=== PATIENT | female | born 1950 | race Asian ===

== ENCOUNTER 2017-08-18 18:43 | Emergency (ER) | payer MEDICARE ==
[2017-08-18] MEDS ORDERED: HYDROcod/ACETAM 5/325 MG TABLET PO STA (18:59)
--- NOTE | 2017-08-18 19:01 | ED Physician Documentation ---
History of Present Illness - Stated complaint Stated Complaint: GLF - Chief complaint Chief Complaint: General - History obtained from History obtained from: Patient - History of Present Illness Timing: Today (She tripped getting out of her car and fell forward hitting both knees and her right wrist on concrete c/o mostly right wrist knee pain, less so the knees and the elbow. No head injury except she scraped her lip. Tetanus is up-to-date.) Review of Systems Constitutional: reports: Reviewed and negative Cardiac: reports: Reviewed and negative Respiratory: reports: Reviewed and negative PD PAST MEDICAL HISTORY - Present Medications Home Medications: Ambulatory Orders Medication Instructions Recorded Confirmed HYDROcod/ACETAM 5/325 [Star 5/325] 1 - 2 ea PO Q6H PRN #15 tablet 08/18/17 - Allergies Allergies/Adverse Reactions: Allergies Allergy/AdvReac Type Severity Reaction Status Date / Time aspirin Allergy Unknown Verified 08/18/17 18:52 PD ED PE NORMAL - Vitals Vital signs reviewed: Yes - General General: Alert and oriented X 3, No acute distress - HEENT HEENT: PERRL, EOMI, Other (There is a little contusion on the right upper lip but no facial bony tenderness or dental injury.) - Neck Neck: Supple, no meningeal sign, No bony TTP - Extremities Extremities: Other (Quite tender with slight deformity of the right wrist and no range of motion but normal neurovascular status in the hand. She has mild tenderness over the elbow as well. Both knees have scrapes and ecchymosis on him and mild tenderness over both patella, right greater than left with intact extensor tendon function.) - Neuro Neuro: Alert and oriented X 3, Normal speech Results - Vitals Vitals: Vital Signs - 24 hr 08/18/17 18:46 Temperature 37 C Heart Rate 90 Respiratory 20 Rate Blood Pressure 168/92 H O2 Saturation 98 Oxygen O2 Source Room air - Rads (name of study) Xrays B KKnees, R wrist and R elbow Radiology: EMP read contemporaneously (Distal radius fracture there is an intra- articular with ulnar styloid fracture, no other fractures.) Procedures - Splint (location) R wrist Splint applied by: Tech Type of splint: Fiberglass, Short arm, Volar cock up Other: Patient tolerated well, No complications, Neurovascular intact Departure - Departure Disposition: 01 Home, Self Care Clinical Impression: Right wrist fracture Qualifiers: Encounter type: initial encounter Fracture type: closed Qualified Code(s): S62.101A - Fracture of unspecified carpal bone, right wrist, initial encounter for closed fracture Contusion of right knee Qualifiers: Encounter type: initial encounter Qualified Code(s): S80.01XA - Contusion of right knee, initial encounter Contusion of left knee Qualifiers: Encounter type: initial encounter Qualified Code(s): S80.02XA - Contusion of left knee, initial encounter Sprain of right elbow Qualifiers: Encounter type: initial encounter Qualified Code(s): S53.401A - Unspecified sprain of right elbow, initial encounter Condition: Good Record reviewed to determine appropriate education?: Yes Instructions: ED Fx Colles Wrist No Redu Requ Follow-Up: [facility] [Provider Group] - Within 1 week Prescriptions: HYDROcod/ACETAM 5/325 [Star 5/325] 1 - 2 ea PO Q6H PRN #15 tablet PRN Reason: Pain Comments: Your blood pressure was elevated today on check into the emergency department. This does not mean that you have hypertension, it is a common phenomenon to come to the emergency department and have elevated blood pressure. I recommend that you see your primary care physician within the week to have it rechecked when you are feeling better. Do not drink or drive while taking narcotic pain medication. Note that many narcotic pain relievers also contain Tylenol/acetaminophen. Please ensure that your total dose of acetaminophen from all sources does not exceed 3 g (3000 mg) per day. You may get constipated while on this medication. Take a stool softener such as Colace twice a day while you are on it. Also add an genv-ics-fdeancf laxative such as senna or MiraLAX on any day that you do not have a bowel movement. If you received a narcotic pain medication or sedative while in the emergency department, do not drive for the next 24 hours.
[2017-08-18 19:07] VITALS: BP 168/92
--- NOTE | 2017-08-18 19:46 | XRAY Preliminary Report ---
Exam: XR KNEE 4 VIEW BILAT IMPRESSION: No acute radiographic abnormalities. [facility] SITE ID: [id number]
--- NOTE | 2017-08-18 19:46 | XRAY Report ---
EXAMS: 1. Right Knee Radiography 2. Left Knee Radiography EXAM DATE:08/18/2017 07:38 PM. CLINICAL HISTORY:Fall, knee, wrist, elbow inj. COMPARISON: None. TECHNIQUE: 3 views each. FINDINGS: Right Knee: Bones: No acute fractures or suspicious bone lesions. Joints: No effusion. No subluxations. Small lateral compartment osteophytes. Soft Tissues: Unremarkable. Left Knee: Bones: No acute fractures or suspicious bone lesions. Joints: No effusion. No subluxations. Small lateral compartment osteophytes. Soft Tissues: Unremarkable. IMPRESSION: No acute radiographic abnormalities. [facility] Referring Provider Line: [phone] SITE ID: [id number]
--- NOTE | 2017-08-18 19:46 | XRAY Preliminary Report ---
Exam: XR WRIST 4 VIEW RT IMPRESSION: Distal radial intra-articular fracture. Ulnar styloid fracture. [facility] SITE ID: [id number]
--- NOTE | 2017-08-18 19:46 | XRAY Report ---
EXAM: RIGHT WRIST RADIOGRAPHY EXAM DATE: 08/18/2017 07:38 PM. CLINICAL HISTORY: Fall, knee, wrist, elbow inj. COMPARISON: None. TECHNIQUE: 4 views. FINDINGS: Bones: Nondisplaced transverse fracture of the distal radial metaphysis extending to the articular redmond rface. Nondisplaced fracture of the ulnar styloid. Joints: No subluxations. 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 Soft Tissues: Unremarkable. IMPRESSION: Distal radial intra-articular fracture. Ulnar styloid fracture. [facility] Referring Provider Line: [phone] SITE ID: [id number]
--- NOTE | 2017-08-18 19:46 | XRAY Preliminary Report ---
Exam: XR ELBOW 3 VIEW RT IMPRESSION: No acute radiographic abnormalities. [facility] SITE ID: [id number]
--- NOTE | 2017-08-18 19:47 | XRAY Report ---
EXAM: RIGHT ELBOW RADIOGRAPHY EXAM DATE: 08/18/2017 07:37 PM. CLINICAL HISTORY: Fall, knee, wrist, elbow inj. COMPARISON: None. TECHNIQUE: 3 views. FINDINGS: Bones: No acute fractures or suspicious bone lesions. Joints: No subluxations. Soft Tissues: Unremarkable. IMPRESSION: No acute radiographic abnormalities. [facility] Referring Provider Line: [phone] SITE ID: [id number]
== END 2017-08-18 20:19 | disposition home or self-care (01) ==
LOC: ED 18:43
DX: S52.571A Other intraarticular fracture of lower end of right radius, initial encounter for closed fracture (principal); S52.611A Displaced fracture of right ulna styloid process, initial encounter for closed fracture; S53.401A Unspecified sprain of right elbow, initial encounter; S80.02XA Contusion of left knee, initial encounter; S80.01XA Contusion of right knee, initial encounter; V48.4XXA Person boarding or alighting a car injured in noncollision transport accident, initial encounter; R03.0 Elevated blood-pressure reading, without diagnosis of hypertension
CPT/HCPCS: 29125; 73080; 73110; 73564; 99281; 99283; A9270

== ENCOUNTER 2017-09-11 07:55 | Day surgery (SDC) | payer MEDICARE ==
[~2017-09-11 07:55] MED LIST: ceFAZolin 1 GM VIAL ONE
[2017-09-11] MEDS ORDERED: LACTATED RINGERS 1,000 ML IV ONE (08:20)
[2017-09-11] MEDS ORDERED: BUPIVACAINE 0.25%-EPI 1:200000 PF 30 ML VIAL ONE (08:57)
[2017-09-11] MEDS ORDERED: PROPOFOL 200 MG/20 ML VIAL IVP ONE (09:30)
[2017-09-11] MEDS ORDERED: LIDOCAINE-MPF 2% 5 ML VIAL IM ONE (09:30)
[2017-09-11] MEDS ORDERED: fentaNYL 100 MCG/2 ML VIAL IVP ONE (09:30)
[2017-09-11] MEDS ORDERED: ONDANSETRON 4 MG/2 ML VIAL IVP ONE (09:30)
[2017-09-11] MEDS ORDERED: MIDAZOLAM 2 MG/2 ML VIAL IVP ONE (09:30)
[2017-09-11] MEDS ORDERED: DEXAMETHASONE 4 MG/ML VIAL IVP ONE (09:30)
[2017-09-11] MEDS ORDERED: BUPIVACAINE 0.25%-EPI 1:200000 PF 10 ML VIAL SUBQ ONE ×2 (09:33)
[2017-09-11] MEDS ORDERED: oxyCODONE 5 MG TABLET ONE (10:55)
--- NOTE | 2017-09-11 11:45 | OPERATIVE REPORT ---
DATE OF SERVICE: 09/11/2017 Physician: Margarita Moyer MD PREOPERATIVE DIAGNOSIS: Right distal radius intraarticular closed radial fracture with dorsal angulation. POSTOPERATIVE DIAGNOSIS: Right distal radius intraarticular closed radial fracture with dorsal angulation. PROCEDURE PERFORMED: Open reduction, internal fixation with percutaneous pinning of right distal radius. SURGEON: Maragrita Moyer MD ANESTHESIA: General by Diego Telles. INDICATIONS FOR SURGERY: Patient is a 66-year-old female over 3 weeks status post a closed right radial fracture with progressive increasing dorsal angulation overtime in spite of reduction and immobilization. Recommendation now is the patient undergo attempted closed reduction versus open reduction pinning versus plate fixation. FINDINGS AT SURGERY: At surgery patient, under anesthetic, underwent a manipulation, and reduction was unable to be gained. This necessitated open reduction for correction of angulation. DESCRIPTION OF OPERATIVE PROCEDURE: Patient was taken to the operating room, given a general anesthetic in a supine position on the OR table. Surgical timeout was accomplished. The limb was sterilely prepped and draped in standard fashion. It was elected to create a dorsal incision entry point and expose the dorsal fracture in order to lever the fracture into a volar or neutral rotation from its deformity and through with exposure of the extensor tendons and protection of the EPL tendon, fracture line was identified by C-arm imaging and a [place] elevator wedged into it and after this inserting the instruments to lever this fracture line into correction as viewed by lateral x-rays of the wrist. Ultimately, a neutral alignment could be gained and was acceptable and once this alignment was held percutaneous pins 0.062 size were driven transradial styloid in a crisscross fashion, gaining fixation and holding this reduction stable as the wrist was moved through range of motion. This was acceptable in 2 planes. The dorsal wound was irrigated and closed with interrupted Vicryl and Prolene and skin. The pins were bent and cut outside the skin with Jurgan balls placed on them, after which the patient was casted in a below elbow fiberglass cast, which was well padded and then univalved for swelling control. The patient was taken to recovery room in stable condition. ESTIMATED BLOOD LOSS: Minimal. COMPLICATIONS: None. SPONGE AND NEEDLE COUNTS: Correct. TD: 09/11/2017 10:36 [facility]
[2017-09-11 11:57] VITALS: BP 174/98
== END 2017-09-11 07:56 | disposition home or self-care (01) ==
LOC: SDS 07:55
PROVIDERS: ATTEND Orthopaedic Surgery
PROC: 0PSH04Z Reposition Right Radius with Internal Fixation Device, Open Approach (ICD-10-PCS; principal; 2017-09-11 08:45)
DX: S52.571A Other intraarticular fracture of lower end of right radius, initial encounter for closed fracture (principal); B18.2 Chronic viral hepatitis C
CPT/HCPCS: 25609; A9270; C1713; J7120

== ENCOUNTER 2019-09-13 17:56 | Emergency (ER) | payer MEDICARE ==
--- NOTE | 2019-09-13 18:20 | ED Physician Documentation ---
PD HPI LOWER EXT INJURY - Stated complaint Stated Complaint: RT LEG SWELLING/DISCOLORATION - Chief complaint Chief Complaint: Ext Problem - History obtained from History obtained from: Patient - History of Present Illness PD HPI LOW EXT INJURY LOCATION: Right (Over the last week she has had relatively painless swelling of the right leg and calf. She went to her chiropractor today who told her she should come here if she did not want to of a blood clot. She denies chest pain or trouble breathing. No history of DVT or PE.) Review of Systems Constitutional: denies: Fever, Chills Nose: reports: Reviewed and negative Cardiac: reports: Reviewed and negative Respiratory: reports: Reviewed and negative PD PAST MEDICAL HISTORY - Past Medical History Cardiovascular: None Respiratory: None Endocrine/Autoimmune: None GI: Hiatal hernia, Hepatitis : None HEENT: Chronic vision loss Psych: Anxiety Musculoskeletal: None Derm: None - Past Surgical History Past Surgical History: No Ortho: Carpal Tunnel surgery, Other /LEGAL ADMINISTRATIVE SECRETARY: section - Allergies Allergies/Adverse Reactions: Allergies Allergy/AdvReac Type Severity Reaction Status Date / Time aspirin Allergy Unknown Verified 09/13/19 18:10 acetaminophen [From Tylenol] AdvReac Unknown Verified 09/13/19 18:10 tape AdvReac Unknown Uncoded 09/13/19 18:10 - Social History Does the pt smoke?: No Smoking Status: Never smoker Does the pt drink ETOH?: No Does the pt have substance abuse?: No - Immunizations Immunizations are current?: Yes - POLST Patient has POLST: No PD ED PE NORMAL - Vitals Vital signs reviewed: Yes - General General: Alert and oriented X 3, No acute distress - HEENT HEENT: PERRL, EOMI - Neck Neck: Supple, no meningeal sign, No bony TTP - Cardiac Cardiac: RRR, No murmur - Respiratory Respiratory: No respiratory distress, Clear bilaterally - Abdomen Abdomen: Soft, Non tender - Back Back: No CVA TTP, No spinal TTP - Derm Derm: Normal color, Warm and dry - Extremities Extremities: Other (She does have edema without tenderness of the right leg from just above the knee down to the foot. She has bounding pedal pulses. Negative Homans sign.) - Neuro Neuro: Alert and oriented X 3, Normal speech Results - Vitals Vitals: Vital Signs - 24 hr 06/09/13/19 09/13/19 18:06 18:38 20:09 Heart Rate 93 93 90 Respiratory 18 18 16 Rate Blood Pressure 129/94 H 129/94 H 178/82 H O2 Saturation 97 97 99 Oxygen O2 Source Room air - Labs Labs: Laboratory Tests 09/13/19 09/13/19 09/13/19 18:34 18:34 18:34 WBC 5.5 RBC 3.61 L Hgb 12.6 Hct 37.1 MCV 102.8 H MCH 34.9 H MCHC 34.0 RDW 14.6 Plt Count 82 L MPV 12.5 H Neut # (Auto) 2.1 Lymph # (Auto) 2.4 [place] # (Auto) 0.7 Eos # (Auto) 0.2 Baso # (Auto) 0.1 Absolute Nucleated RBC 0.00 Nucleated RBC % 0.0 PT 15.3 H INR 1.4 H APTT 34.3 H Sodium 133 L Potassium 3.6 Chloride 101 Carbon Dioxide 26 Anion Gap 6.0 BUN 19 Creatinine 0.6 Estimated GFR (MDRD) 99 Glucose 101 H Calcium 9.7 - Rads (name of study) RLE sono Radiology: EMP read contemporaneously (Neg for DVT) PD MEDICAL DECISION MAKING - ED course ED course: The patient was counseled as to the diagnosis and need for follow-up. I coun seled the patient with regard to signs and symptoms that would necessitate an urgent reevaluation in the emergency department. They understand they are welcome to return at any time if worse or if not improving as expected. This document was made in part using voice recognition software. While efforts are made to proofread this documents, sound alike and grammatical errors may occur. Departure - Departure Disposition: 01 Home, Self Care Clinical Impression: Pedal edema Condition: Good Record reviewed to determine appropriate education?: Yes Instructions: ED Leg Swelling Unilateral Comments: Thanks for your patience today, your ultrasound of your legs shows no blood clots. Follow-up with your doctor in 1 week if not better, return for new or worsening symptoms. Discharge Date/Time: 09/13/19 20:45
[2019-09-13 18:46] LABS: BASOPHILS # (AUTO) 0.1 10^3/uL (0.0-0.1); BASOPHILS % (AUTO) 1.1 %; EOSINOPHILS # (AUTO) 0.2 10^3/uL (0.0-0.7); EOSINOPHILS % (AUTO) 3.3 %; HGB - HEMOGLOBIN 12.6 g/dL (12.0-16.0); LYMPHOCYTES # (AUTO) 2.4 10^3/uL (1.5-3.5); LYMPHOCYTES % (AUTO) 43.9 %; MEAN CORPUSCULAR HEMOGLOBIN 34.9 pg (27.0-31.0); MEAN CORPUSCULAR VOLUME 102.8 fL (81.0-99.0); MEAN PLATELET VOLUME 12.5 fL (7.9-10.8); MONOCYTES # (AUTO) 0.7 10^3/uL (0.0-1.0); MONOCYTES % (AUTO) 12.7 %; NEUTROPHILS # (AUTO) 2.1 10^3/uL (1.5-6.6); NEUTROPHILS % (AUTO) 38.8 %; PLT - PLATELET COUNT 82 10^3/uL (130-450); RED BLOOD COUNT 3.61 10^6/uL (4.20-5.40); RED CELL DISTRIBUTION WIDTH 14.6 % (12.0-15.0); WHITE BLOOD COUNT 5.5 x10^3/uL (4.8-10.8)
[2019-09-13 18:55] LABS: INR 1.4 (0.8-1.2); PT - PROTHROMBIN TIME 15.3 secs (9.9-12.6)
[2019-09-13 19:02] LABS: PARTIAL THROMBOPLASTIN TIME 34.3 secs (24.9-33.3)
[2019-09-13 19:03] LABS: CALCIUM 9.7 mg/dL (8.5-10.3); CREATININE 0.6 mg/dL (0.4-1.0)
[2019-09-13 20:20] VITALS: BP 178/82
--- NOTE | 2019-09-13 21:04 | Ultrasound Report ---
PROCEDURE: Duplex Ext Veins Right INDICATIONS: RLE swelling TECHNIQUE: Real-time imaging, as well as color and pulse Doppler interrogation, were performed of the lower extr emity deep veins from the inguinal ligament to the popliteal fossa. COMPARISON: None. FINDINGS: The deep veins are normally compressible, and free of intraluminal thrombus. Color and pu lse Doppler demonstrate normal phasic intraluminal flow. There is normal augmentation response to di stal compression maneuver. IMPRESSION: No DVT in the right lower extremity. Reviewed by: Jt Heart MD on 09/13/2019 9:02 PM PDT Approved by: Jt Heart MD on 09/13/2019 9:02 PM PDT Station ID: [id number]
== END 2019-09-13 20:45 | disposition home or self-care (01) ==
LOC: ED 17:56
DX: R60.0 Localized edema (principal)
CPT/HCPCS: 36415; 80048; 85025; 85610; 85730; 99283; 99284

== ENCOUNTER 2020-07-03 08:00 | Outpatient (CLI) | payer MEDICARE ==
[2020-07-03 18:04] LABS: BASOPHILS # (AUTO) 0.1 10^3/uL (0.0-0.1); BASOPHILS % (AUTO) 1.5 %; EOSINOPHILS # (AUTO) 0.1 10^3/uL (0.0-0.7); EOSINOPHILS % (AUTO) 3.3 %; HGB - HEMOGLOBIN 13.1 g/dL (12.0-16.0); LYMPHOCYTES # (AUTO) 1.2 10^3/uL (1.5-3.5); LYMPHOCYTES % (AUTO) 36.4 %; MEAN CORPUSCULAR HEMOGLOBIN 36.1 pg (27.0-31.0); MEAN CORPUSCULAR HGB CONC 34.5 g/dL (32.0-36.0); MEAN CORPUSCULAR VOLUME 104.7 fL (81.0-99.0); MEAN PLATELET VOLUME 13.7 fL (7.9-10.8); MONOCYTES # (AUTO) 0.4 10^3/uL (0.0-1.0); MONOCYTES % (AUTO) 11.8 %; NEUTROPHILS # (AUTO) 1.5 10^3/uL (1.5-6.6); NEUTROPHILS % (AUTO) 46.7 %; PLT - PLATELET COUNT 76 10^3/uL (130-450); RED BLOOD COUNT 3.63 10^6/uL (4.20-5.40); RED CELL DISTRIBUTION WIDTH 14.8 % (12.0-15.0); WHITE BLOOD COUNT 3.3 x10^3/uL (4.8-10.8)
[2020-07-03 18:18] LABS: INR 1.3 (0.8-1.2); PT - PROTHROMBIN TIME 14.6 secs (9.9-12.6)
[2020-07-03 18:19] LABS: ALBUMIN 3.8 g/dL (3.2-5.5); ALBUMIN/GLOBULIN RATIO 0.8 (1.0-2.2); BILIRUBIN,TOTAL 1.4 mg/dL (0.2-1.0); CALCIUM 9.9 mg/dL (8.5-10.3); CREATININE 0.4 mg/dL (0.4-1.0); MAGNESIUM 1.9 mg/dL (1.7-2.8); POTASSIUM 4.4 mmol/L (3.5-5.0); TOTAL PROTEIN 8.3 g/dL (6.7-8.2)
[2020-07-04 12:48] LABS: HEPATITIS B CORE AB TOTAL REACTIVE (NON-REACTIVE); HEPATITIS B SURFACE ANTIGEN NON-REACTIVE (NON-REACTIVE); HEPATITIS C ANTIBODY REACTIVE (NON-REACTIVE)
== END 2020-07-03 23:59 | disposition home or self-care (01) ==
LOC: LAB.WCP 08:00
PROVIDERS: ATTEND Family Medicine
DX: B18.2 Chronic viral hepatitis C (principal)
CPT/HCPCS: 36415; 80053; 83735; 85025; 85610; 86317; 86704; 86803; 87340; 87522

== ENCOUNTER 2020-07-24 08:57 | Outpatient (CLI) | payer MEDICARE ==
--- NOTE | 2020-07-24 15:07 | Ultrasound Report ---
PROCEDURE: Abdomen Complete INDICATIONS: HEP C, CHRONIC TECHNIQUE: Real-time scanning was performed of the abdominal and retroperitoneal organs, with image documentatio n. COMPARISON: None. FINDINGS: Liver: Liver is normal in size and homogeneous in echotexture, hyperechoic and coarse in echotexture consistent with fatty infiltration. Gallbladder: The gallbladder appears normal, free of calculus and gallbladder wall thickening is not present. There is a 6 x 7 mm nonshadowing focus within the gallbladder lumen likely a small sludge ba ll. Biliary ducts: Intrahepatic bile ducts are non-dilated. Extrahepatic bile duct caliber measures 4.7 mm. Normal is 6-7 mm or less in diameter, or 10 mm or less post-cholecystectomy. Pancreas: Visualized portions of the pancreas are sonographically normal. Spleen: Spleen is normal in size and homogeneous in echotexture. Kidneys: Kidneys are normal in size and echotexture. Right kidney measures 11.8 cm long; left kidne y measures 12.3 cm long. No hydronephrosis or nephrolithiasis. No solid masses. There is a simple appearing 4.2 cm maximal dimension right renal cortical cyst and 2 additional smaller cysts measuring 1.8 cm and 0.6 cm respectively on the right. A left renal cortical cyst is present, also simple in a ppearance and measuring up to 1.7 cm. Aorta: Visualized aorta is normal in caliber at less than 3 cm. Iliacs: Proximal common iliac arteries are normal in caliber at less than 2.5 cm. IVC: Intrahepatic inferior vena cava is patent. Miscellaneous: No free abdominal fluid. IMPRESSION: Hyperechoic coarse echotexture of the liver, consistent with fatty infiltration. No definite hepatic capsular nodularity, or splenomegaly, is seen. No ascites or varices are found. No focal liver mass l esion is seen. Incidental note is made of a small 6 x 7 mm mildly echogenic focus within the gallbladder lumen most likely a small sludge ball given absence of shadowing posterior to this structure. This also could re present a relatively hypoechoic gallbladder polyp. Reviewed by: Yossi Johnson MD on 07/24/2020 3:06 PM PDT Approved by: Yossi Johnson MD on 07/24/2020 3:06 PM PDT Station ID: [id number]
== END 2020-07-24 08:58 | disposition home or self-care (01) ==
LOC: DI 08:57
PROVIDERS: ATTEND Family Medicine
DX: B18.2 Chronic viral hepatitis C (principal)

== ENCOUNTER 2021-07-04 13:45 | Outpatient (CLI) | payer MEDICARE ==
[2021-07-04 17:52] LABS: INR 1.2 (0.8-1.2); PT - PROTHROMBIN TIME 12.8 secs (9.9-12.6)
[2021-07-04 18:01] LABS: ALBUMIN/GLOBULIN RATIO 0.7 (1.0-2.2); BILIRUBIN,TOTAL 1.2 mg/dL (0.2-1.0); CALCIUM 10.1 mg/dL (8.5-10.3); CREATININE 0.9 mg/dL (0.4-1.0); POTASSIUM 4.3 mmol/L (3.5-5.0); TOTAL PROTEIN 7.5 g/dL (6.7-8.2)
[2021-07-04 18:19] LABS: THYROID STIMULATING HORMONE 1.04 uIU/mL (0.34-5.60)
[2021-07-04 18:25] LABS: BASOPHILS # (AUTO) 0.1 10^3/uL (0.0-0.1); EOSINOPHILS # (AUTO) 0.2 10^3/uL (0.0-0.7); EOSINOPHILS % (AUTO) 3.6 %; HCT - HEMATOCRIT 36.4 % (37.0-47.0); HGB - HEMOGLOBIN 12.5 g/dL (12.0-16.0); LYMPHOCYTES # (AUTO) 2.4 10^3/uL (1.5-3.5); LYMPHOCYTES % (AUTO) 39.5 %; MEAN CORPUSCULAR HEMOGLOBIN 36.3 pg (27.0-31.0); MEAN CORPUSCULAR HGB CONC 34.3 g/dL (32.0-36.0); MEAN CORPUSCULAR VOLUME 105.8 fL (81.0-99.0); MEAN PLATELET VOLUME 13.2 fL (7.9-10.8); MONOCYTES # (AUTO) 0.6 10^3/uL (0.0-1.0); MONOCYTES % (AUTO) 10.5 %; NEUTROPHILS # (AUTO) 2.7 10^3/uL (1.5-6.6); NEUTROPHILS % (AUTO) 45.1 %; PLT - PLATELET COUNT 115 10^3/uL (130-450); RED BLOOD COUNT 3.44 10^6/uL (4.20-5.40); RED CELL DISTRIBUTION WIDTH 14.7 % (12.0-15.0); WHITE BLOOD COUNT 6.1 x10^3/uL (4.8-10.8)
[2021-07-06 22:04] LABS: HCV RNA QUANT RT PCR 2510000 IU/mL
[2021-07-08 19:16] LABS: HEPATITIS C VIRAL RNA GENOTYPE 1a
== END 2021-07-04 13:46 | disposition home or self-care (01) ==
LOC: LAB.N 13:45
PROVIDERS: ATTEND Family Medicine
DX: B18.2 Chronic viral hepatitis C (principal); R41.3 Other amnesia
CPT/HCPCS: 36415; 80053; 80306; 82607; 84443; 85025; 85610; 87522; 87902

== ENCOUNTER 2021-07-20 14:52 | Outpatient (CLI) | payer MEDICARE ==
--- NOTE | 2021-07-20 21:18 | Ultrasound Report ---
PROCEDURE: Abdomen Complete INDICATIONS: ABN LIVER FUNCTION TESTS TECHNIQUE: Real-time scanning was performed of the abdominal and retroperitoneal organs, with image documentatio n. COMPARISON: None. FINDINGS: Liver: Liver is normal in size and homogeneous in echotexture. Liver has coarse echogenic echotextur e. No focal hepatic mass lesion. Gallbladder: No gallstones. 1.0 cm gallbladder polyp. Gallbladder wall measures 2.1 mm. No pericholec ystic fluid. Biliary ducts: Intrahepatic bile ducts are non-dilated. Extrahepatic bile duct caliber measures 6.3 mm. Normal is 6-7 mm or less in diameter, or 10 mm or less post-cholecystectomy. Pancreas: Visualized portions of the pancreas are sonographically normal. Tail the pancreas not visu alized bowel gas cannot be evaluated. Spleen: Spleen is normal in size and homogeneous in echotexture. Kidneys: Kidneys are normal in size and echotexture. Right kidney measures 11.8 cm long; left kidne y measures 11.4 cm long. No hydronephrosis or nephrolithiasis. No solid masses. Bilateral renal cys ts noted. Aorta: Visualized aorta is normal in caliber at less than 3 cm. Iliacs: Proximal common iliac arteries are normal in caliber at less than 2.5 cm. IVC: Intrahepatic inferior vena cava is patent. Miscellaneous: No free abdominal fluid. IMPRESSION: 1. Echogenic liver. Finding typically related to hepatic steatosis, however the finding is nonspecifi c and other etiologies including hepatic cirrhosis can produce similar appearance. 2. No focal hepatic mass lesions. 3. Bilateral renal cysts. Reviewed by: Samantha Lopez MD, PhD on 07/20/2021 9:17 PM PDT Approved by: Samantha Lopez MD, PhD on 07/20/2021 9:17 PM PDT Station ID: [id number]
== END 2021-07-20 14:53 | disposition home or self-care (01) ==
LOC: DI 14:52
PROVIDERS: ATTEND Family Medicine
DX: B18.2 Chronic viral hepatitis C (principal); N28.1 Cyst of kidney, acquired

== ENCOUNTER 2021-09-27 12:04 | Outpatient (CLI) | payer MEDICARE ==
[2021-09-27 17:49] LABS: BASOPHILS # (AUTO) 0.1 10^3/uL (0.0-0.1); BASOPHILS % (AUTO) 0.9 %; EOSINOPHILS # (AUTO) 0.2 10^3/uL (0.0-0.7); HGB - HEMOGLOBIN 13.3 g/dL (12.0-16.0); LYMPHOCYTES # (AUTO) 1.7 10^3/uL (1.5-3.5); LYMPHOCYTES % (AUTO) 29.8 %; MEAN CORPUSCULAR HEMOGLOBIN 34.8 pg (27.0-31.0); MEAN CORPUSCULAR HGB CONC 33.3 g/dL (32.0-36.0); MEAN CORPUSCULAR VOLUME 104.7 fL (81.0-99.0); MEAN PLATELET VOLUME 13.3 fL (7.9-10.8); MONOCYTES # (AUTO) 0.7 10^3/uL (0.0-1.0); NEUTROPHILS # (AUTO) 3.1 10^3/uL (1.5-6.6); NEUTROPHILS % (AUTO) 53.9 %; PLT - PLATELET COUNT 134 10^3/uL (130-450); RED BLOOD COUNT 3.82 10^6/uL (4.20-5.40); WHITE BLOOD COUNT 5.7 x10^3/uL (4.8-10.8)
[2021-09-27 18:11] LABS: ALBUMIN 3.6 g/dL (3.2-5.5); ALBUMIN/GLOBULIN RATIO 0.7 (1.0-2.2); CALCIUM 11.2 mg/dL (8.5-10.3); CREATININE 0.7 mg/dL (0.4-1.0); TOTAL PROTEIN 8.6 g/dL (6.7-8.2); URIC ACID 5.4 mg/dL (2.6-7.2)
== END 2021-09-27 12:05 | disposition home or self-care (01) ==
LOC: LAB.N 12:04
PROVIDERS: ATTEND Nurse Practitioner
DX: R94.5 Abnormal results of liver function studies (principal); R53.83 Other fatigue; M25.572 Pain in left ankle and joints of left foot; E83.52 Hypercalcemia
CPT/HCPCS: 36415; 80053; 83970; 84550; 85025

== ENCOUNTER 2022-09-11 15:49 | Outpatient (CLI) | payer MEDICARE | END 2022-09-11 15:50 | disposition critical access hospital (66) | LOC: EMS 15:49 | DX: R10.84 Generalized abdominal pain (principal) | CPT/HCPCS: A0425; A0429 ==

== ENCOUNTER 2022-09-11 16:12 | Emergency (ER) | payer MEDICARE ==
--- NOTE | 2022-09-11 16:28 | ED Physician Documentation ---
PD HPI NVD - Stated complaint Stated Complaint: ALLERGIC REACTION - Chief complaint Chief Complaint: Abd Pain - History obtained from History obtained from: Patient - History of Present Illness Timing - onset: How many minutes ago (30), Today Timing - details: Abrupt onset, Still present Associated symptoms: Abdominal pain (cramping), Other (nausea, shaky, starting with some diarrhea as arriving here. She makes poppy bulb tea (some opioid efffect) and was prescribed Naltrexone by PCP to be able to not have effect of the opioids. She had not taken it as yet, until today but after having some of the tea the past 5 days. Abrupt symptoms.) Review of Systems Constitutional: denies: Fever Nose: denies: Congestion Cardiac: denies: Chest pain / pressure, Palpitations Respiratory: denies: Dyspnea, Cough GI: reports: Nausea (today, quick onset.), Vomiting, Diarrhea. denies: Abdominal Pain Neurologic: denies: Focal weakness, Numbness PD PAST MEDICAL HISTORY - Past Medical History Cardiovascular: None Respiratory: None Endocrine/Autoimmune: None GI: Hiatal hernia, Hepatitis : None HEENT: Chronic vision loss Psych: Anxiety Musculoskeletal: None Derm: None - Past Surgical History Past Surgical History: No Ortho: Carpal Tunnel surgery, Other /[employer]: section - Present Medications Home Medications: Ambulatory Orders Medication Instructions Recorded Confirmed Buspirone HCl 1 tab PO BID 04/10/22 04/16/22 Doxycycline Monohydrate 100 mg PO BID 10 Days #20 cap 04/10/22 Lisinopril/Hydrochlorothiazide 1 tab PO DAILY 04/10/22 04/10/22 [Zestoretic 10-12.5 mg Tablet] Naproxen Sodium [Aleve] 1 tab PO DAILY PRN 04/10/22 04/10/22 amLODIPine [Norvasc] 1 tab PO DAILY 04/10/22 04/10/22 cephALEXin [Keflex] 1 cap PO TID 04/10/22 04/10/22 - Allergies Allergies/Adverse Reactions: Allergies Allergy/AdvReac Type Severity Reaction Status Date / Time aspirin Allergy Unknown Verified 09/13/19 18:10 shellfish derived Allergy Itching Verified 04/10/22 13:07 acetaminophen [From Tylenol] AdvReac Unknown Verified 09/13/19 18:10 tape AdvReac Unknown Uncoded 06/29/20 18:10 - Social History Does the pt smoke?: No Smoking Status: Never smoker Does the pt drink ETOH?: No Does the pt have substance abuse?: No Substance Use and Type: Other (opioid substances she states by making tea with poppy bulbs.) - Immunizations Immunizations are current?: Yes - POLST Patient has POLST: No PD ED PE NORMAL - Vitals Vital signs reviewed: Yes - General General: Alert and oriented X 3, Well developed/nourished, Other (anxoius, nauseated and holding emesis bag. ) - Neck Neck: Supple, no meningeal sign, No adenopathy - Cardiac Cardiac: RRR, No murmur - Respiratory Respiratory: Clear bilaterally - Abdomen Abdomen: Soft, Non distended, No organomegaly, Other (mild tender to palpation mid to upper abd. ). No: Normal bowel sounds (increased) - Back Back: No CVA TTP - Derm Derm: Normal color, Warm and dry - Extremities Extremities: No edema, No calf tenderness / cord - Neuro Neuro: Alert and oriented X 3, No motor deficit, Normal speech Results - Vitals Vitals: Vital Signs - 24 hr 09/11/22 09/11/22 09/11/22 16:21 17:09 18:38 Temperature 36.6 C Heart Rate 72 66 87 Respiratory 16 18 16 Rate Blood Pressure 144/90 H 138/104 H 128/108 H O2 Saturation 100 100 96 09/11/22 09/11/22 20:00 22:00 Temperature Heart Rate 78 92 Respiratory 16 16 Rate Blood Pressure 128/108 H 167/113 H O2 Saturation 98 98 Oxygen O2 Source Room air - Labs Labs: Laboratory Tests 09/11/22 09/11/22 17:30 17:30 WBC 5.1 RBC 4.06 L Hgb 13.9 Hct 40.4 MCV 99.5 H MCH 34.2 H MCHC 34.4 RDW 13.4 Plt Count 97 L MPV 12.9 H Neut # (Auto) 2.5 Lymph # (Auto) 1.9 [place] # (Auto) 0.5 Eos # (Auto) 0.1 Baso # (Auto) 0.0 Absolute Nucleated RBC 0.00 Nucleated RBC % 0.0 Sodium 137 Potassium 3.3 L Chloride 104 Carbon Dioxide 26 Anion Gap 7.0 BUN 18 Creatinine 0.7 Estimated GFR (MDRD) 82 L Glucose 116 H Calcium 10.2 Magnesium 1.7 Total Bilirubin 1.1 H AST 129 H ALT 123 H Alkaline Phosphatase 154 H Total Protein 8.4 H Albumin 3.5 Globulin 4.9 H Albumin/Globulin Ratio 0.7 L Lipase 152 H Ethyl Alcohol < 5.0 PD Medical Decision Making - ED course Complexity details: considered differential ED course: The patient does have some opioid use which she states is from poppy bulb T. She denied prescribed opioids. She is apparently in acute opioid withdrawal from having taken naltrexone which had been prescribed for her by her primary care as a prophylactic for opioid abuse. However she had taken it after already having some opioids in her system last several days. She took the naltrexone and has abrupt nausea vomiting shakiness abdominal cramps and some developing diarrhea. She had felt okay prior to that. She was given some IV fluids as well as Inapsine and Toradol and dicyclomine to help with symptoms. Minimal improvement with these. Opioids certainly would not work for her symptoms and would likely precipitate further withdrawal symptoms given the half-life of naltrexone being at least 4 to 5 hours for the parent medication and 6 8 to 10 hours for the metabolites. I considered partial agonist with higher affinity such as buprenorphine on but I am not sure on its ability to have higher affinity than naltrexone so I did not give any at this point. To help with her symptoms otherwise, I went with a 0.5 mg/kg infusion of ketamine (40 mg) given in fluid over 40 minutes. This did provide a reasonable improvement in her symptoms and she is now relaxed and sleeping. No vomiting at this time. Vital signs are watched closely. She has borderline low oxygenation at 90 to 91% and so was given supplemental by nasal cannula for now. Her ventilation and respiratory volume appears normal. Care was given over to Dr. Livingston at change of shift. At this point presumption would be seen if her symptoms are improved enough in time for the naltrexone to wear off. Unclear the duration of this so defer to her symptoms evaluation of her symptoms in the short-term to decide whether she would meet hobs criteria for the hospital versus prolonged ER stay. Departure - Departure Disposition: 01 Home, Self Care Clinical Impression: Medication adverse effect Condition: Stable Instructions: ED Drug React Adverse Other Comments: Your laboratory studies show elevated liver enzymes, which is chronic for you. Otherwise, there is nothing significant concerning on your labs. Most likely, the reaction was due to taking your naltrexone at the same time as the opioids, and this should be avoided in the future. We will need to talk to your doctor about your medication regimen and make sure that you understand how to take your meds and when.
[2022-09-11] MEDS ORDERED: SODIUM CHLORIDE 0.9% 1,000 ML IV STA (17:18)
[2022-09-11] MEDS ORDERED: KETOROLAC 15 MG/ML VIAL IVP STA (17:20)
[2022-09-11] MEDS ORDERED: DROPERIDOL 5 MG/2 ML VIAL IVP STA (17:24)
[2022-09-11 17:35] LABS: BASOPHILS % (AUTO) 0.6 %; EOSINOPHILS # (AUTO) 0.1 10^3/uL (0.0-0.7); EOSINOPHILS % (AUTO) 2.3 %; HCT - HEMATOCRIT 40.4 % (37.0-47.0); HGB - HEMOGLOBIN 13.9 g/dL (12.0-16.0); LYMPHOCYTES # (AUTO) 1.9 10^3/uL (1.5-3.5); LYMPHOCYTES % (AUTO) 37.4 %; MEAN CORPUSCULAR HEMOGLOBIN 34.2 pg (27.0-31.0); MEAN CORPUSCULAR HGB CONC 34.4 g/dL (32.0-36.0); MEAN CORPUSCULAR VOLUME 99.5 fL (81.0-99.0); MEAN PLATELET VOLUME 12.9 fL (7.9-10.8); MONOCYTES # (AUTO) 0.5 10^3/uL (0.0-1.0); MONOCYTES % (AUTO) 9.8 %; NEUTROPHILS # (AUTO) 2.5 10^3/uL (1.5-6.6); NEUTROPHILS % (AUTO) 49.5 %; PLT - PLATELET COUNT 97 10^3/uL (130-450); RED BLOOD COUNT 4.06 10^6/uL (4.20-5.40); RED CELL DISTRIBUTION WIDTH 13.4 % (12.0-15.0); WHITE BLOOD COUNT 5.1 x10^3/uL (4.8-10.8)
[2022-09-11 17:47] LABS: ALBUMIN 3.5 g/dL (3.2-5.5); ALBUMIN/GLOBULIN RATIO 0.7 (1.0-2.2); ALKALINE PHOSPHATASE 154 IU/L (42-121); ALT ALANINE AMINOTRANSFERASE 123 IU/L (10-60); AST ASPARTATE AMINOTRANSFERASE 129 IU/L (10-42); BILIRUBIN,TOTAL 1.1 mg/dL (0.2-1.0); BUN - BLOOD UREA NITROGEN 18 mg/dL (6-20); CALCIUM 10.2 mg/dL (8.5-10.3); CARBON DIOXIDE - CO2 26 mmol/L (21-32); CHLORIDE 104 mmol/L (101-111); CREATININE 0.7 mg/dL (0.4-1.0); ETOH - ETHANOL < 5.0 mg/dL; GFR - MDRD 82 (>89); GLUCOSE 116 mg/dL (70-100); LIPASE 152 U/L (22-51); MAGNESIUM 1.7 mg/dL (1.7-2.8); POTASSIUM 3.3 mmol/L (3.5-5.0); SODIUM 137 mmol/L (135-145); TOTAL PROTEIN 8.4 g/dL (6.7-8.2)
[2022-09-11] MEDS ORDERED: LORazepam 2 MG/ML VIAL IVP STA (18:09)
[2022-09-11] MEDS ORDERED: KETAMINE (50MG/ML) 40 MG in SODIUM CHLORIDE 0.9% 100ML 100 ML IV STA (18:10)
[2022-09-11 22:12] VITALS: BP 167/113
[2022-09-12] MEDS ORDERED: HYOSCYAMINE SL 0.125 MG TABLET SL SCH (07:00)
== END 2022-09-11 22:00 | disposition home or self-care (01) ==
LOC: EDUNIT# → ED 16:12
DX: R11.2 Nausea with vomiting, unspecified (principal); T50.7X5A Adverse effect of analeptics and opioid receptor antagonists, initial encounter; Z79.899 Other long term (current) drug therapy
CPT/HCPCS: 36415; 80053; 83690; 83735; 85025; 96365; 96375; 99283; G0480; J2060; 80320

== ENCOUNTER 2022-10-15 12:32 | Outpatient (CLI) | payer MEDICARE ==
--- NOTE | 2022-10-30 04:31 | Ultrasound Report ---
PROCEDURE: Abdomen Limited INDICATIONS: CIRRHOSIS TECHNIQUE: Real-time focused scanning was performed of the abdomen, with image documentation. COMPARISONS: Abdominal ultrasound 07/20/2021, 07/24/2020. FINDINGS: Liver: Liver is normal in size with increased echogenicity and coarse echotexture. Gallbladder: Multiple mobile calculi are visualized. There is no gallbladder wall thickening or peric holecystic fluid. Sonographic Bishop sign is negative. Biliary ducts: Intrahepatic bile ducts are non-dilated. Extrahepatic bile duct caliber measures 7 m m. Normal is 6-7 mm or less in diameter, or 10 mm or less post-cholecystectomy. Pancreas: Visualized portions of the pancreas are sonographically normal. Right kidney: Normal in size and echotexture. Right kidney measures 12.1 cm long. No hydronephrosis or nephrolithiasis. No solid masses. Right renal cysts. Miscellaneous: Fat-containing ventral hernia with neck measuring up to 1.7 cm. IMPRESSION: 1. Coarse hepatic echotexture with increased echogenicity is suggestive of cirrhosis. No focal hepati c lesions identified. 2. Cholelithiasis without sonographic evidence of acute cholecystitis. 3. Ventral fat-containing hernia corresponding to palpable abnormality. Reviewed by: Isabella Franco MD on 10/15/2022 7:34 PM PDT Approved by: Isabella Franco MD on 10/15/2022 7:34 PM PDT Station ID: [id number]
== END 2022-10-15 12:33 | disposition home or self-care (01) ==
LOC: DI 12:32
PROVIDERS: ATTEND Nurse Practitioner
DX: K74.60 Unspecified cirrhosis of liver (principal); B18.2 Chronic viral hepatitis C; K80.20 Calculus of gallbladder without cholecystitis without obstruction; K43.9 Ventral hernia without obstruction or gangrene